=== PATIENT | female | born 1990 | race Caucasian/White ===

== ENCOUNTER 2017-01-27 07:28 | Day surgery (SDC) | payer OTHER ==
[~2017-01-27] VITALS: Ht 175.3 cm; Wt 97.7 kg
[~2017-01-27 07:28] MED LIST: CELE40TA PO; GABA-282 PO
[2017-01-27] MEDS ORDERED: LR 1,000 ML IV ONE (08:00)
[2017-01-27 08:09] LABS: BASO # 0.1 10^3/uL (0.0-0.2); BASO % 0.7 % (0.0-1.0); EOS # 0.1 10^3/uL (0.0-0.50); IMMATURE GRANULOCYTE % 0.1 % (0-0); LYMPH # 2.8 10^3/uL (1.5-6.5); LYMPH % 34.4 % (24.0-44.0); MEAN CORPUSCULAR HEMOGLOBIN 29.6 pg (27.0-33.0); MEAN CORPUSCULAR HGB CONC 33.8 g/dl (32.0-36.5); MEAN CORPUSCULAR VOLUME 87.5 fl (80.0-96.0); MONO # 0.4 10^3/uL (0.0-0.8); MONO % 5.5 % (0.0-5.0); NEUTROPHILS # 4.7 10^3/uL (1.8-7.7); NEUTROPHILS % 58.3 % (36.0-66.0); PLATELET COUNT, AUTOMATED 214 10^3/uL (150-450); RED CELL DISTRIBUTION WIDTH 13.3 % (11.5-14.5)
[2017-01-27 08:19] LABS: CONTROL LINE HCG INT CTR LINE PRESENT
[2017-01-27] MEDS ORDERED: ONDANSETRON 4MG/2ML VIAL (J2405) As Ordered ONE (08:28)
[2017-01-27] MEDS ORDERED: dexameTHASONE 4 MG/ML 1ML VIAL (J1100) As Ordered ONE ×2 (08:28→14:14)
[2017-01-27] MEDS ORDERED: PROPOFOL 200 MG/20 ML VIAL As Ordered ONE (08:28)
[2017-01-27] MEDS ORDERED: fentaNYL 100 MCG/2 ML INJECTION (J3010) As Ordered ONE (08:28)
[2017-01-27] MEDS ORDERED: LIDOCAINE 2% INJ 100 MG/5 ML SDV (FOR ANES.) As Ordered ONE (08:28)
[2017-01-27] MEDS ORDERED: MIDAZOLAM INJ 2 MG/2 ML VIAL (J2250) As Ordered ONE (08:28)
[2017-01-27] MEDS ORDERED: ROCURONIUM BROMIDE 50 MG/5 ML VIAL/SYRINGE As Ordered ONE (08:28)
[2017-01-27] MEDS ORDERED: KETOROLAC 60 MG/2 ML VIAL (J1885) As Ordered ONE (08:28)
[2017-01-27] MEDS ORDERED: GLYCOPYRROLATE INJ 0.2 MG/ML 2 ML VIAL As Ordered ONE (08:49)
[2017-01-27] MEDS ORDERED: NEOSTIGMINE 10 MG/10 ML VIAL (J2710) As Ordered ONE (08:49)
[2017-01-27] MEDS ORDERED: HYDROmorphone HCL 2 MG/ML 1ML VIAL (J1170) As Ordered ONE (08:50)
[2017-01-27] MEDS ORDERED: KETOROLAC 30 MG/ML VIAL (J1885) IV ONE (09:30)
[2017-01-27] MEDS ORDERED: BUPIVACAINE HCL 0.25% 30 ML VIAL As Ordered ONE (13:26)
[2017-01-27] MEDS ORDERED: SILVER NITRATE APPLICATOR As Ordered ONE ×2 (14:48→14:51)
[2017-01-27] MEDS ORDERED: HYDROmorphone HCL 1 MG/ML SYRINGE (J1170) As Ordered ONE (15:27)
[2017-01-27] MEDS ORDERED: PERCOCET 5MG/325MG TAB As Ordered ONE (15:27)
[2017-01-27] MEDS: HYDROmorphone HCL 1 MG/ML SYRINGE (J1170) IV PRN ×2 (15:30→15:35)
[2017-01-27] MEDS: PERCOCET 5MG/325MG TAB PO PRN ×2 (15:42→16:31)
[2017-01-27] MEDS ORDERED: LR 1,000 ML IV SCH ×2 (15:45)
[2017-01-27] MEDS ORDERED: PERCOCET 5MG/325MG TAB PO PRN (15:45)
[2017-01-27] MEDS ORDERED: ONDANSETRON 4MG/2ML VIAL (J2405) IV PRN (15:45)
[2017-01-27] MEDS ORDERED: IBUPROFEN 800 MG TAB PO PRN (15:45)
[2017-01-27] MEDS ORDERED: fentaNYL 100 MCG/2 ML INJECTION (J3010) IV PRN (15:45)
--- NOTE | 2017-01-27 16:38 | RO ---
DATE OF PROCEDURE: 01/27/2017 PREPROCEDURE DIAGNOSIS: Perforated intrauterine device (IUD) from different hospital and satisfied parity. POSTPROCEDURE DIAGNOSIS: Perforated intrauterine device (IUD) from different hospital and satisfied parity. PROCEDURE: Intraabdominal intrauterine device removal, bilateral salpingectomy. SURGEON: Dr. Edward Mena GUT PULLER: Dr. Mariaelena Steward, also known as Dr. Paige ANESTHESIA: General endotracheal. ESTIMATED BLOOD LOSS: Less than 5 mL. DRAINS: 25 mL of clear urine in the Mayers catheter at the end of the case. FLUIDS REPLACED: 1000 mL of lactated Ringer's. PREOPERATIVE ANTIBIOTICS: None. SPECIMENS REMOVED: A total of three IUD fragments and string, left fallopian tube, right fallopian tube. INDICATION: IUD placed at [place], [place], diagnosed with perforated IUD just before moving to [place], [place]. No complications or problems. Currently desired removal and removal was definitely indicated. Informed consent obtained and on the day of surgery, informed consent obtained also for laparoscopic salpingectomy due to satisfied parity. FINDINGS: IUD in the midline attached to the abdominal wall in an adhesion, normal fallopian tubes bilaterally, normal ovaries bilaterally, normal upper abdomen. DESCRIPTION OF PROCEDURE: The patient was taken to the operating room with an IV in place where she was placed in dorsal lithotomy position after general endotracheal anesthesia was easily obtained. An exam under anesthesia was unremarkable. She was then prepped and draped in the normal sterile fashion, including placement of a Mayers catheter. Speculum was placed into the vagina and the tenaculum was placed on the anterior lip of the cervix along with a Ocasio cannula into the endocervix. The surgeon's gloves were changed. Attention was turned to the abdomen. The patient was lowered to waist height and flattened out. Approximately 3 mL of 0.50% Marcaine with no epinephrine were injected just under the umbilicus and the skin was tented up and a 5 mm incision was made in the midline just under the umbilicus. Optiview trocar with camera inserted was then placed under direct visualization into the abdominal cavity without difficulty. Pneumoperitoneum was easily obtained with high flow CO2. A quick exploration of the abdomen, both upper and lower, revealed findings as described above. A right lower quadrant 5 mm port was placed under direct visualization in the exact same fashion as the first port, followed by a left lower quadrant port in exactly the same fashion as well. There was no complication with all three trocar placements. There was never fear of vascular, bowel or bladder injury at the beginning of the case or throughout. Using LigaSure, we easily removed the intraabdominal adhesions that connected the omentum to the anterior abdominal wall in which the IUD was found. We then removed the IUD without difficulty and a small amount of bleeding was cauterized. Hemostasis noted from the adhesion site. The IUD was easily removed through the trocar. This was sent to pathology for confirmation. Then grasped the left fallopian tube from the right trocar, tented it up and using the LigaSure removed the entire fallopian tube without difficulty to the cornu. This was removed through the right trocar. We then did the exact same procedure on the contralateral side without difficulty. Hemostasis was noted throughout and photo documentation was obtained. All trocars were removed under direct visualization after allowing as much CO2 to escape as possible and each skin incision site was closed with Dermabond. Hemostasis was noted from incisions times three. I then removed the Ocasio cannula and the tenaculum from the anterior lip of the cervix, used a small amount of silver nitrate to obtain hemostasis and the case was concluded. All in all, it was very uncomplicated and counts were correct times three.
[2017-01-27 17:00] VITALS: BP 115/70
[2017-01-27] MEDS ORDERED: PROMETHAZINE INJ 25 MG/ML VIAL (J2550) IV SCH (17:15)
[2017-01-27] MEDS ORDERED: DOCUSATE SODIUM 100 MG CAP PO SCH (21:00)
== END 2017-01-27 17:38 | disposition home or self-care (01) ==
LOC: M SDC 07:28
PROVIDERS: ATTEND Obstetrics & Gynecology
DX: Z30.2 Encounter for sterilization (principal); T83.39XA Other mechanical complication of intrauterine contraceptive device, initial encounter; I49.9 Cardiac arrhythmia, unspecified; Z79.899 Other long term (current) drug therapy; Z87.81 Personal history of (healed) traumatic fracture
CPT/HCPCS: 36415; 58301; 58661; 84703; 85025; 86850; 88300; 88302; 96374; 96375; J1100; J1170; J1885; J2250; J2405; J2710; J3010

== ENCOUNTER → 2019-02-28 | Outpatient (REF) | payer OTHER ==
[~2019-02-28] MED LIST changes: -GABA-282 PO; +GABA-843 PO
== END ==
LOC: M LAB REF 10:29
PROVIDERS: ATTEND Nurse Practitioner Family
DX: R30.0 Dysuria (principal)

== ENCOUNTER → 2019-03-05 | Outpatient (CLI) | payer OTHER ==
[2019-03-05 13:24] LABS: BASO % 0.4 % (0.0-1.0); EOS # 0.1 10^3/uL (0.0-0.5); EOS % 0.5 % (0.0-3.0); HEMATOCRIT 42.5 % (36.0-47.0); HEMOGLOBIN 13.6 g/dl (12.0-15.5); LYMPH # 1.3 10^3/uL (1.5-5.0); LYMPH % 12.1 % (24.0-44.0); MEAN CORPUSCULAR HEMOGLOBIN 28.6 pg (27.0-33.0); MEAN CORPUSCULAR VOLUME 89.3 fl (80.0-96.0); MONO # 0.7 10^3/uL (0.0-0.8); MONO % 6.7 % (0.0-5.0); NEUTROPHILS # 8.4 10^3/uL (1.5-8.5); PLATELET COUNT, AUTOMATED 246 10^3/uL (150-450); RED BLOOD COUNT 4.76 10^6/uL (4.00-5.40); WHITE BLOOD COUNT 10.5 10^3/uL (4.0-10.0)
[2019-03-05 13:38] LABS: ALBUMIN 3.4 GM/DL (3.2-5.2); ALT/SGPT 84 U/L (12-78); BILIRUBIN,TOTAL 0.5 MG/DL (0.2-1.0); BLOOD UREA NITROGEN 13 MG/DL (7-18); CALCIUM LEVEL 8.9 MG/DL (8.5-10.1); CARBON DIOXIDE LEVEL 27 MEQ/L (21-32); CHLORIDE LEVEL 103 MEQ/L (98-107); CREATININE FOR GFR 0.76 MG/DL (0.55-1.30); GLOMERULAR FILTRATION RATE > 60.0 (>60); GLUCOSE, FASTING 82 MG/DL (70-100); POTASSIUM SERUM 4.8 MEQ/L (3.5-5.1); SODIUM LEVEL 137 MEQ/L (136-145); TOTAL PROTEIN 7.2 GM/DL (6.4-8.2)
[2019-03-09 00:06] LABS: EBV VIRAL CAPSID AG IgM <36.0 U/mL (0.0-35.9)
== END ==
LOC: M WUC 11:37
PROVIDERS: ATTEND Physician Assistant
DX: R53.83 Other fatigue (principal)

== ENCOUNTER → 2019-06-27 | Outpatient (CLI) | payer OTHER ==
[2019-06-27 16:17] LABS: BASO # 0.1 10^3/uL (0.0-0.2); BASO % 0.8 % (0.0-1.0); EOS # 0.1 10^3/uL (0.0-0.5); EOS % 0.8 % (0.0-3.0); HEMATOCRIT 42.8 % (36.0-47.0); HEMOGLOBIN 14.5 g/dl (12.0-15.5); LYMPH # 3.6 10^3/uL (1.5-5.0); LYMPH % 34.6 % (24.0-44.0); MEAN CORPUSCULAR HEMOGLOBIN 29.6 pg (27.0-33.0); MEAN CORPUSCULAR HGB CONC 33.9 g/dl (32.0-36.5); MEAN CORPUSCULAR VOLUME 87.3 fl (80.0-96.0); MONO # 0.6 10^3/uL (0.0-0.8); MONO % 5.9 % (0.0-5.0); NEUTROPHILS % 57.7 % (36.0-66.0); PLATELET COUNT, AUTOMATED 229 10^3/uL (150-450); WHITE BLOOD COUNT 10.4 10^3/uL (4.0-10.0)
== END ==
LOC: M WUC 12:58
PROVIDERS: ATTEND Physician Assistant
DX: R50.9 Fever, unspecified (principal)